=== PATIENT | male | born 1980 | race African-American/Black ===

== ENCOUNTER 2023-11-07 11:33 | Emergency (ER) | payer OTHER, SELFPAY ==
[2023-11-07 12:54] LABS: Absolute Eosinophils 0.1 K/uL (0-0.5); Absolute Lymphocytes (CBC) 1.5 K/uL (0.7-4.9); Absolute Monocytes 0.6 K/uL (0.1-1.3); Absolute Neutrophil 3.3 K/uL (1.8-8.0); Basophils % 0.5 % (0-1.3); Eosinophils % 1.6 % (0-4.4); Hematocrit 44.6 % (39.6-49.0); Hemoglobin 14.7 g/dL (13.6-17.9); Lymphocytes % 27.5 % (15.3-44.8); MCH 27.7 pg (27.0-35.0); MCV 83.8 fL (80-100); Monocytes % 10.9 % (3.3-12.3); Neutrophils % 59.5 % (41.7-73.7); Platelets 268 thou/uL (152-406); RBC Red Blood Cell Count 5.32 M/uL (4.33-5.43); Red Cell Distribution Width 16.9 % (12.1-15.2)
[2023-11-07 13:08] LABS: Troponin High Sensitivity 3.8 pg/mL (<58.9)
--- NOTE | 2023-11-07 13:17 | RAD REPORT ---
EXAM DESCRIPTION: RAD - Chest Single View - 11/07/2023 1:07 pm CLINICAL HISTORY: lightheaded COMPARISON: <Comparisons> FINDINGS: Lines: None. Lungs: No evidence of edema or pneumonia. Pleural: No significant pleural effusions or pneumothorax. Cardiac: The heart size is within normal limits. Mediastinum: Within normal limits. Bones: No acute fractures. Other: None IMPRESSION: No acute cardiopulmonary disease.
--- NOTE | 2023-11-07 14:47 | EDPHYS ---
Physician Documentation [facility] Name: Raj Hastings Sr Age: 42 yrs Sex: Male : 1980 Arrival Date: 11/07/2023 Time: 11:33 Bed 7 Private MD: ED Physician Carroll Henson HPI: 11/06 13:09 This 42 yrs old Black Male presents to ER via EMS with complaints of Lightheaded. ms3 13:09 42-year-old male with past medical history of asthma presents to the emergency ms3 department for lightheadedness. 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 After taking a break he began moving pallets again and experienced dizziness and lightheadedness. Patient then went back to the break room, showered, and then went to the lunchroom where it was cooler. Patient states his symptoms did not improve so he called for help. He states his symptoms began at 10 AM. He states he is currently asymptomatic. He denies nausea, vomiting, chest pain during the episode.. Historical: - Allergies: :44 No Known Allergies; ko1 - Home Meds: :44 None [Active]; ko1 - PMHx: :44 Asthma; ko1 - PSHx: :44 None; ko1 - Immunization history:: Adult Immunizations up to date. - Infectious Disease History:: Denies. - Social history:: Smoking status: Patient denies any tobacco usage or history of. ROS: 13:09 Constitutional: Negative for fever, and chills. Cardiovascular: Negative for chest ms3 pain, and palpitations. Respiratory: Negative for shortness of breath, cough, wheezing, and pleuritic chest pain, Abdomen/GI: Negative for abdominal pain, nausea, vomiting, diarrhea, and constipation, MS/Extremity: Negative for injury and deformity, Skin: Negative for injury, rash, and discoloration, 13:09 Neuro: Positive for dizziness, 13:09 All other systems are negative, Exam: 13:09 Constitutional: This is a well developed, well nourished patient who is awake, alert, ms3 and in no acute distress. Head/Face: Normocephalic, atraumatic. Neck: Trachea midline, no cervical lymphadenopathy. Supple, full range of motion without nuchal rigidity, or vertebral point tenderness. No Meningismus. Chest/axilla: Normal chest wall appearance and motion. Nontender with no deformity. Cardiovascular: Regular rate and rhythm with a normal S1 and S2. No gallops, murmurs, or rubs. Normal PMI, no JVD. No pulse deficits. Respiratory: Lungs have equal breath sounds bilaterally, clear to auscultation and percussion. No rales, rhonchi or wheezes noted. No increased work of breathing, no retractions or nasal flaring. Abdomen/GI: Soft, non-tender, with normal bowel sounds. No distension or tympany. No guarding or rebound. No evidence of tenderness throughout. Skin: Warm, dry with normal turgor. Normal color with no rashes, no lesions, and no evidence of cellulitis. MS/ Extremity: Pulses equal, no cyanosis. Neurovascular intact. Full, normal range of motion. 13:25 ECG was reviewed by the Attending Physician. ms3 Vital Signs: 11:30 BP 145 / 92; Pulse 86; Resp 16; Temp 98.8; Pulse Ox 97% on R/A; ko1 12:46 BP 132 / 93; Pulse 87; Resp 18; Pulse Ox 99% on R/A; ld1 13:54 BP 145 / 100; Pulse 82; Resp 17; Pulse Ox 99% ; ll1 14:47 BP 132 / 99; Pulse 81; Resp 16; Pulse Ox 99% ; ko1 MDM: 11:40 Patient medically screened. ms3 13:09 Differential diagnosis: Electrolyte abnormality versus dehydration versus dizziness. ms3 18:18 Data reviewed: vital signs, nurses notes, lab test result(s), EKG, radiologic studies, ms3 and as a result, I will discharge patient. Historians other than the Patient: EMS: . Counseling: I had a detailed discussion with the patient and/or guardian regarding the historical points, exam findings, and any diagnostic results supporting the discharge/admit diagnosis, lab results, radiology results, the need for outpatient follow up, to return to the emergency department if symptoms worsen or persist or if there are any questions or concerns that arise at home. Special discussion: I discussed with the patient/guardian in detail that at this point there is no indication for admission to the hospital. It is understood, however, that if the symptoms persist or worsen the patient needs to return immediately for re-evaluation. ED course: Discussed labs, EKG, chest x-ray with patient. Patient to follow-up with primary care physician in 2 to 3 days. Patient understands and agrees with plan. All questions were answered. Return precautions discussed include worsening symptoms, or any other concerns. 11/06 12:21 Order name: Basic Metabolic Panel; Complete Time: 13:09 ms3 11/06 12:21 Order name: CBC with Diff; Complete Time: 13:09 ms3 11/06 12:21 Order name: Troponin HS; Complete Time: 13:09 ms3 11/06 13:25 Order name: Troponin High Sensitivity; Complete Time: 14:23 ms3 11/06 12:21 Order name: XRAY Chest (1 view); Complete Time: 13:18 ms3 11/06 12:21 Order name: EKG; Complete Time: 12:21 ms3 11/06 12:21 Order name: Cardiac monitoring; Complete Time: 12:32 ms3 11/06 12:21 Order name: EKG - Nurse/Tech; Complete Time: 12:46 ms3 11/06 12:21 Order name: IV Saline Lock; Complete Time: 12:32 ms3 11/06 12:21 Order name: Labs collected and sent; Complete Time: 12:46 ms3 11/06 12:21 Order name: O2 Per Protocol; Complete Time: 12:32 ms3 11/06 12:21 Order name: O2 Sat Monitoring; Complete Time: 12:32 ms3 EC:25 Rate is 84 beats/min. Rhythm is regular. QRS [place] is Normal. DE interval is normal. QRS ms3 interval is normal. Clinical impression: Normal ECG. Interpreted by me. Reviewed by me. Administered Medications: No medications were administered Disposition Summary: 11/07/23 14:46 Discharge Ordered Notes: Location: Home ms3 Condition: Stable ms3 Diagnosis - Lightheaded ms3 - Elevated blood-pressure reading, without diagnosis of hypertension ms3 Followup: ms3 - With: Private Physician - When: 2 - 3 days - Reason: Recheck today's complaints Discharge Instructions: - Discharge Summary Sheet ms3 - DASH Eating Plan ms3 - Form - Blood Pressure Record Sheet ms3 - How to Take Your Blood Pressure ms3 - Preventing Hypertension ms3 Forms: - Medication Reconciliation Form ms3 - Antibiotic Education ms3 - Prescription Opioid Use ms3 - Patient Portal Instructions ms3 - Leadership Thank You Letter ms3 Signatures: Dispatcher [employer] Carroll Gordon, DO ms3 Rachelle Anthony, RN RN ko1
--- NOTE | 2023-11-07 14:47 | ER ---
Nurse's Notes [facility] Name: Raj Hastings Sr Age: 42 yrs Sex: Male : 1980 Arrival Date: 11/07/2023 Time: 11:33 Bed 7 Private MD: Diagnosis: Lightheaded;Elevated blood-pressure reading, without diagnosis of hypertension Presentation: 11/06 11:30 Chief complaint: EMS states: nausea and vomiting, felt like he was going to pass out at [employer] work. Coronavirus screen: At this time, the client does not indicate any symptoms associated with coronavirus-19. Ebola Screen: No symptoms or risks identified at this time. Initial Sepsis Screen: Does the patient meet any 2 criteria? No. Patient's initial sepsis screen is negative. Does the patient have a suspected source of infection? No. Patient's initial sepsis screen is negative. Risk Assessment: Do you want to hurt yourself or someone else? Patient reports no desire to harm self or others. Onset of symptoms was November 07, 2023. Care prior to arrival: Medication(s) given: Normal saline infusion, 1000 mL, IV initiated. 20 GA, in the right antecubital area, Glucose check: 104. 11:30 Method Of Arrival: EMS: [facility] ko1 11:30 Acuity: SHANNON 3 ko1 Triage Assessment: 11:44 General: Appears in no apparent distress. Behavior is calm, cooperative, appropriate ko1 for age. Pain: Denies pain. EENT: No deficits noted. Neuro: No deficits noted. Cardiovascular: Rhythm is sinus rhythm. Respiratory: No deficits noted. GI: Reports nausea, vomiting. : No deficits noted. Derm: No deficits noted. Musculoskeletal: No deficits noted. Historical: - Allergies: 11:44 No Known Allergies; ko1 - Home Meds: 11:44 None [Active]; ko1 - PMHx: 11:44 Asthma; ko1 - PSHx: 11:44 None; ko1 - Immunization history:: Adult Immunizations up to date. - Infectious Disease History:: Denies. - Social history:: Smoking status: Patient denies any tobacco usage or history of. Screenin:46 [facility] ED Fall Risk Assessment (Adult) History of falling in the last 3 months, ko1 including since admission No falls in past 3 months (0 pts) Confusion or Disorientation No (0 pts) Intoxicated or Sedated No (0 pts) Impaired Gait No (0 pts) Mobility Assist Device Used No (0 pt) Altered Elimination No (0 pt) Score/Fall Risk Level 0 - 2 = Low Risk Oriented to surroundings, Maintained a safe environment, Educated pt \T\ family on fall prevention, incl call for assistance when getting out of bed, Assessed \T\ reinforced patient's understanding of fall precautions, Provided non-skid footwear, Hourly rounding (assess needs \T\ fall precautionary measures) done, Used ambulatory aids as needed (educated on \T\ assisted with), Used gait belt as appropriate. Abuse screen: Denies threats or abuse. Denies injuries from another. Nutritional screening: No deficits noted. Tuberculosis screening: No symptoms or risk factors identified. Assessment: 11:46 Reassessment: see triage note. GI: Abdomen is flat, non-distended. ko1 12:46 Reassessment: Patient appears in no apparent distress at this time. No changes from ld1 previously documented assessment. Patient and/or family updated on plan of care and expected duration. Pain level reassessed. Patient is alert, oriented x 3, equal unlabored respirations, skin warm/dry/pink. 13:52 Reassessment: No changes from previously documented assessment. Patient and/or family ll1 updated on plan of care and expected duration. Pain level reassessed. Patient is alert, oriented x 3, equal unlabored respirations, skin warm/dry/pink. Vital Signs: 11:30 BP 145 / 92; Pulse 86; Resp 16; Temp 98.8; Pulse Ox 97% on R/A; ko1 12:46 BP 132 / 93; Pulse 87; Resp 18; Pulse Ox 99% on R/A; ld1 13:54 BP 145 / 100; Pulse 82; Resp 17; Pulse Ox 99% ; ll1 14:47 BP 132 / 99; Pulse 81; Resp 16; Pulse Ox 99% ; ko1 ED Course: 11:39 Patient arrived in ED. ld1 11:40 Carroll Henson DO is Attending Physician. ms3 11:41 Rachelle Anthony, RN is Primary Nurse. ko1 11:44 Triage completed. ko1 11:44 Arm band placed on left wrist. Patient placed in an exam room, on a stretcher, on ko1 night monitor, on pulse oximetry, Patient notified of wait time. 11:46 Patient has correct armband on for positive identification. Bed in low position. Call ko1 light in reach. Side rails up X 1. Provided Education on: call light. Client placed on continuous cardiac and pulse oximetry monitoring. NIBP monitoring applied. security monitor on. Door closed. Noise minimized. Lights dimmed. Warm blanket given. Pillow given. Assisted to bathroom. 11:46 No provider procedures requiring assistance completed. Maintain EMS IV. Dressing ko1 intact. Good blood return noted. Site clean \T\ dry. Gauge \T\ site: 20g right AC. 13:09 XRAY Chest (1 view) In Process Unspecified. EDMS 13:52 Repeat lab(s) drawn. by me, sent to lab. ll1 14:47 IV discontinued, intact, bleeding controlled, No redness/swelling at site. Pressure ko1 dressing applied. Administered Medications: No medications were administered Medication: 11:46 VIS not applicable for this client. ko1 Outcome: 14:46 Discharge ordered by . ms3 14:47 Discharged to home ambulatory, ko1 14:47 Condition: stable 14:47 Discharge instructions given to patient, Instructed on discharge instructions, follow up and referral plans. Demonstrated understanding of instructions, follow-up care, 14:53 Patient left the ED. ko1 Signatures: Dispatcher [employer] EDLeonides Mccallum, RN RN ll1 Carroll Henson DO DO ms3 Tricia Henson RN RN ld1 Rachelle Anthony RN RN ko1
[2023-11-07 15:05] VITALS: BP 132/99; O2SAT 99
--- NOTE | 2023-11-08 11:02 | EKG ---
Test Date: 2023-11-07 Test Time: 12:43:02 Other Spatial Scientist: Nando STORM MEASUREMENT RESULTS: Intervals: Rate: 84 WI: 168 QRSD: 80 QT: 366 QTc: 432 [place]: P: 59 WI: 168 QRS: 51 T: 47 INTERPRETIVE STATEMENTS: Normal sinus rhythm Normal ECG No previous ECG available for comparison Electronically Signed On 11-08-23 10:59:38 CDT by Leo Mcallister
== END 2023-11-07 14:53 | disposition home or self-care (01) ==
LOC: ER 11:33
DX: R42 Dizziness and giddiness (principal); R03.0 Elevated blood-pressure reading, without diagnosis of hypertension
CPT/HCPCS: 36415; 71045; 80048; 84484; 85025; 93005; 99284